=== PATIENT | female | born 2005 | race Caucasian/White ===

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

== ENCOUNTER 2024-10-05 17:28 | Emergency (ER) | payer MEDICAID, SELFPAY ==
[2024-10-05 17:30] VITALS: BP 108/77; PULSE 91; RESP 16; O2SAT 96
--- NOTE | 2024-10-05 19:40 | W.ED.PREGNAN ---
HPI - General: Chief complaint: OB/Uterine Contractions Stated complaint: 15 weeks losing fl Time Seen by Provider: 10/05/24 19:28 Source: patient Mode of arrival: ambulatory Limitations: no limitations History of Present Illness: 19-year-old female states she is 15 weeks states today she developed some fluid was unsure if she had urinated a little or if she had had some amniotic fluid. She denies any bleeding. She denies any fever or severe abdominal pain. Associated symptoms: Deny abdominal pain, headache(s), nausea or vomiting Related Data Home Medications ?Medication ?Instructions ?Recorded ?Confirmed 1 tab PO DAILY 11/08/23 12/15/23 Tylenol 1 - 2 tab PO PRN PRN Pain 11/08/23 12/15/23 Allergies Allergy/AdvReac Type Severity Reaction Status Date / Time cefdinir (From Omnicef) AdvReac Mild Hives & Verified 12/15/23 21:07 Itching Review of Systems Const: Denies: fever(s), chills, body aches or change in appetite ENMT: Denies: throat pain or dental pain Card: Denies: chest pain Resp: Denies: dyspnea GI: Denies: abdominal pain, nausea, vomiting or diarrhea Musc: Denies: neck pain or back pain Skin/Breast: Denies: rash Neuro: Denies: headache(s) PFSH ED PFSH: Medical History No pertinent past medical history neghx: htn,dm,thyroid,dvt/pe PCP: pediatric center Surgical History No pertinent past surgical history Family History Family/Other Breast cancer Maternal Great Grandmother-- dx age 30's Ovarian cancer Maternal Cousins x 2 --- dx age 20's Maternal Aunt-- dx age 30 Thyroid disease Maternal Aunt Grandfather No problems noted. Grandmother Hypertension Maternal Thyroid disease Maternal Sister Thyroid disease Denies family history of Colon cancer Diabetes Heart disease Hypercholesteremia Uterine cancer Stroke Social History Smoking and tobacco/nicotine status: never used tobacco/nicotine Physical Exam Const: COMMON NORMALS: no acute distress, patient oriented x3 and healthy appearing HENMT: COMMON NORMALS: normocephalic and atraumatic HEAD & SCALP: normocephalic and atraumatic Neck/C-Spine: COMMON NORMALS: full ROM and supple Chest: COMMONS NORMALS: normal inspection of the chest Resp: COMMON NORMALS: normal respiratory effort Cardio: COMMON NORMALS: regular rate RATE: regular rate GI: COMMON NORMALS: Normal to inspection, nondistended, normoactive bowel sounds present, Soft to palpation, non-tender and no masses PALPATION: Yes Soft to palpation Extremity: COMMON NORMALS: normal to inspection and full ROM Neuro: COMMON NORMALS: patient oriented x3, moves all extremities and no focal motor deficits Psych: COMMON NORMALS: mental status grossly normal, Normal thought process present and cooperative THOUGHT PROCESS: Normal thought process present Skin: COMMON NORMALS: no rashes or lesions noted and no wounds GENERAL SKIN EXAM: no rashes or lesions noted Course Vital Signs: Vital signs: Vital Signs Pulse Rate 91 10/05/24 17:30 Respiratory Rate 16 10/05/24 17:30 Blood Pressure 108/77 10/05/24 17:30 Pulse Oximetry 96 10/05/24 17:30 Oxygen Delivery Me thod Room Air 10/05/24 17:30 MDM - OB/Uterine Contractions Medical Decision Making Patient presents here with concerns with her I did a bedside ultrasound showed IUP consistent dates heart rate of 150s. She has follow-up with her OB tomorrow she has no bleeding she stable for discharge. Medical Records I reviewed the patient's medical records. No radiology studies performed this visit Discharge Plan Discharge Patient Disposition: Home Clinical Impression: Condition: Stable Prescriptions: No Action 1 tab PO DAILY Tylenol 1 - 2 tab PO PRN PRN (Reason: Pain) Discharge Orders: Discharge ED (Routine); Ordered 10/05/24 Ordered By: Ata Lindsey Referrals: Yecenia Spencer MD [Primary Care Provider, Family Practice] - 4-7 days Discharge Diet: Advance as tolerated Discharge Activity: Resume usual activity Patient Instructions: (ED) Print Language: Barbadian Coding Level of Care Code ED [employer]reg[employer] Gun Hand for Robin Hurtado
[2024-10-05 19:51] VITALS: BP 123/71; PULSE 69; RESP 16; O2SAT 97
== END 2024-10-05 19:52 | disposition home or self-care (01) ==
PROVIDERS: Emergency Provider Emergency Medicine; PCP Family Medicine
DX: Z34.82 Encounter for supervision of other normal pregnancy, second trimester (principal); Z3A.14 14 weeks gestation of pregnancy
CPT/HCPCS: 99282